=== PATIENT | female | born 1990 | race Caucasian/White ===

== ENCOUNTER → 2021-10-23 09:04 | Day surgery (SDC) | payer BC, SELFPAY ==
[2021-10-23 09:33] VITALS: BMI 39.1
--- NOTE | 2021-10-23 11:31 | HMH.TILT ---
Findings:: PROCEDURE: Tilt table test REQUESTING PROVIDER: NANCY Patino INDICATION: Palpitations, dizziness, possible POTS BETA BLOCKERS: None PRETEST VITAL SIGNS (supine): BP 142/72, HR 76 and regular, O2sats 98% PROCEDURE SUMMARY: Patient was prepped per protocol, IV started, connected to heart, blood pressure and oxygen saturation monitors and safety straps applied. She was then tilted at 70 degrees for a total of 35 minutes. She denied any symptoms during the test and had no dizziness, lightheadedness, near syncope or syncope. Her vital signs remained stable and normal throughout the test with minimal fluctuations. In the upright position her lowest BP was 130/77 occurring after 30 minutes upright and highest was 140/82 occurring after 25 minutes upright. While upright her lowest heart rate was 82 bpm and highest was 89 bpm. She was in a normal sinus rhythm throughout. Oxygen saturation was 97 to 100% throughout. CONCLUSIONS: Normal tilt table test.
== END ==
PROVIDERS: PCP Pain Medicine Pain Medicine; Visit Provider Pain Medicine Pain Medicine
DX: R55 Syncope and collapse (principal); R00.0 Tachycardia, unspecified
CPT/HCPCS: 93660

== ENCOUNTER → 2021-10-31 08:35 | Outpatient (CLI) | payer BC, SELFPAY | LOC: RT 08:36 | PROVIDERS: PCP Pain Medicine Pain Medicine; Visit Provider Pain Medicine Pain Medicine | DX: R55 Syncope and collapse (principal); R00.0 Tachycardia, unspecified | CPT/HCPCS: 93225; 93226 ==

== ENCOUNTER 2022-02-16 11:58 | Emergency (ER) | payer BC, SELFPAY ==
--- NOTE | 2022-02-16 14:07 | EXP.UTC ---
Discharge Plan Disposition Patient Disposition: Home, Self-Care Condition: Good Prescriptions Prescriptions: New azithromycin [Zithromax] 250 mg tablet 250 mg PO UD DOSE PK Qty: 6 0RF Rx Instructions: Take two (2) tablets today, then one (1) tablet days #2 thru #5 methylprednisolone 4 mg Tablets,Dose Pack 4 mg PO DIRECTED Qty: 21 0RF Referrals Follow up/Referrals: Amy Sullivan APRN [Primary Care Provider] - See instructions Activity Restrictions/Add. Instructions Additional Instructions/Restrictions: Drink plenty of fluids. Take tylenol or ibuprofen for pain or fever. Take the medications as directed. Follow up with your regular doctor. GO TO THE ER FOR ANY WORSENING SYMPTOMS Don't start the oral steroids until tomorrow, since you had the shot here today. Clinical Impressions Clinical Impression: Pharyngitis Instructions Patient Instructions: DI for Pharyngitis/Tonsillopharyngitis -- Adult Discharge ED Provider: Jey Rodriguez [facility] [place] General Stated complaint: sore throat, headache,congestion Time Seen by Provider: 02/16/22 14:07 History of Present Illness Provider Complaint: She states that for the past 2 days she has had sore throat, chills, body aches and low grade fever. Related Data Previous Rx's Medication Instructions Recorded azithromycin 250 mg tablet 250 mg PO UD DOSE PK #6 tabs 02/16/22 (Zithromax) methylprednisolone 4 mg tablets in 4 mg PO DIRECTED #21 tabs 02/16/22 a dose pack Allergies Allergy/AdvReac Type Severity Reaction Status Date / Time No Known Allergies Allergy Verified 02/16/22 14:32 [facility] Disclaimer: The information contained in this section may have been updated after the patient was seen, as this information can be updated by other users. Social History Smoking Status: Never smoker alcohol intake: never current occupational status: employed Travel in the last 8 weeks: None ROS Obtained: Yes All systems reviewed & no additional complaints except as documented Constitutional Constitutional: Reports chills and Reports fever(s) Eyes Eyes: Denies eye discharge ENT Ears, Nose, Mouth, and Throat: Reports as per HPI Cardiovascular Cardiovascular: Denies chest pain Respiratory Respiratory: Denies chest congestion and Reports cough Gastrointestinal Gastrointestingal: Reports nausea; Denies abdominal pain, constipation, cramping, diarrhea or vomiting Musculoskeletal Musculoskeletal: Denies arthralgias Integumentary/Breasts Skin/Breast: Denies rash Neurologic Neurologic: Denies paresthesias Physical Exam General General appearance: alert and in no apparent distress Head Head exam: atraumatic, normocephalic and normal inspection Eye Eye exam: Present normal appearance, PERRL and EOMI ENT ENT exam: Present mucous membranes moist and normal external ear exam Expanded ENT Exam TM/Canal exam: Bilateral TM: erythema and bulging Nose exam: Absent sinus tenderness Mouth exam: Present normal external inspection; Absent drooling Teeth exam: Present normal inspection Throat exam: Present tonsillar erythema, tonsillomegaly and tonsillar exudate Neck Neck exam: Present normal inspection, full ROM and trachea midline; Absent tenderness, meningismus or lymphadenopathy Chest Chest inspection: Present normal inspection and symmetric chest wall rise; Absent tenderness Respiratory Respiratory exam: Present normal lung sounds bilaterally; Absent respiratory distress, wheezes or stridor Cardiovascular Cardiovascular exam: Present regular rate and normal rhythm; Absent systolic murmur or diastolic murmur Abdominal Exam Abdominal exam: Present soft and normal bowel sounds; Absent distention, tenderness, guarding, rebound or rigidity Extremities Exam Extremities exam: Present normal inspection and normal capillary refill; Absent calf tenderness Back Exam Back exam: Prese
[2022-02-16 14:28] LABS: UTC Influenza A Antigen Negative (Negative); UTC Strep Screen (Rapid) Negative (Negative)
[2022-02-16 14:29] LABS: UTC Influenza B Antigen Negative (Negative)
[2022-02-16 14:30] VITALS: BP 120/70; PULSE 96; RESP 16; TEMP 36.6; O2SAT 98; BMI 39.1
[2022-02-16 15:42] VITALS: BP 120/70; PULSE 96; RESP 16; TEMP 36.6
[2022-02-16 15:53] LABS: Adenovirus,PCR Not Detected (NotDetected); Bordetella Pertussis Not Detected (NotDetected); Chlamydophila Pneumoniae, PCR Not Detected (NotDetected); Coronavirus 229E Not Detected (NotDetected); Coronavirus NL63 Not Detected (NotDetected); Coronavirus OC43 Not Detected (NotDetected); Coronovirus HKU1,PCR Not Detected (NotDetected); Human Metapneumovirus Not Detected (NotDetected); Influenza A, PCR Not Detected (NotDetected); Influenza AH1, 2009 Not Detected (NotDetected); Influenza AH1, PCR Not Detected (NotDetected); Influenza AH3,PCR Not Detected (NotDetected); Influenza B, PCR Not Detected (NotDetected); Mycoplasma Pneumoniae, PCR Not Detected (NotDetected); Parainfluenza 1, PCR Not Detected (NotDetected); Parainfluenza 2, PCR Not Detected (NotDetected); Parainfluenza 3, PCR Not Detected (NotDetected); Parainfluenza 4, PCR Not Detected (NotDetected); Respiratory Syncytial Virus Not Detected (NotDetected); Rhinovirus/Enterovirus Not Detected (NotDetected)
[2022-02-16 23:59] LABS: Coronavirus 19, PCR Detected (NotDetected)
== END 2022-02-16 15:43 | disposition home or self-care (01) ==
PROVIDERS: Emergency Provider Nurse Practitioner Family; PCP Pain Medicine Pain Medicine
DX: U07.1 COVID-19 (principal); J02.9 Acute pharyngitis, unspecified; R50.9 Fever, unspecified; M79.10 Myalgia, unspecified site; R09.81 Nasal congestion; R51.9 Headache, unspecified; Z79.52 Long term (current) use of systemic steroids
CPT/HCPCS: 87581; 87632; 87798; 87804; 87880; 96372; 99213; C9803; G0463; J0696; U0003; U0005

== ENCOUNTER 2022-05-13 05:10 | Emergency (ER) | payer BC, SELFPAY ==
[2022-05-13] VITALS (7 sets, daily range): BP systolic 108–131; BP diastolic 70–77; PULSE 97–103; RESP 17–18; TEMP 36.6–36.7; O2SAT 98–100; BMI 30.4; BMI 39.1
--- NOTE | 2022-05-13 05:13 | ECG_ITS ---
APPROVED REPORT Exam: Resting ECG HR:176 bpm ECG Measurements Heart Rate 176 AXES QRSd 87 QRS 83 QT 210 T -37 QTc 304 Conclusion ATRIAL FIBRILLATION WITH RAPID VENTRICULAR RESPONSE NONSPECIFIC ST & T-WAVE ABNORMALITY CRITICAL TEST RESULT UNCONFIRMED REPORT Electronically signed by : Zeeshan Corral MD 05/13/2022 19:22:54
--- NOTE | 2022-05-13 05:19 | XR_ITS ---
PROCEDURE INFORMATION: Exam: XR Chest Exam date and time: 05/13/2022 6:03 AM Age: 32 years old Clinical indication: Shortness of breath; Additional info: Rapid hr, SOA TECHNIQUE: Imaging protocol: Radiologic exam of the chest. Views: 1 view. COMPARISON: No relevant prior studies available. FINDINGS: Lungs: Unremarkable. No consolidation. Pleural spaces: Unremarkable. No pleural effusion. No pneumothorax. Heart/Mediastinum: Unremarkable. No cardiomegaly. Bones/joints: Unremarkable. IMPRESSION: No acute findings.
--- NOTE | 2022-05-13 05:26 | ECG_ITS ---
APPROVED REPORT Exam: Resting ECG HR:102 bpm ECG Measurements Heart Rate 102 AXES MI 170 P 46 QRSd 90 QRS 77 QT 320 T 49 QTc 379 Conclusion SINUS TACHYCARDIA NONSPECIFIC T-WAVE ABNORMALITY ABNORMAL RHYTHM ECG UNCONFIRMED REPORT Electronically signed by : Zeeshan Corral MD 05/13/2022 19:22:45
[2022-05-13 05:34] LABS: Basophils # 0.1 K/mm3 (0-0.2); Basophils % 0.6 % (0.1-2.0); Eosinophils # 0.3 K/mm3 (0.0-0.4); Eosinophils % 2.9 % (0.1-12.0); Hematocrit 44.3 % (37.0-47.0); Hemoglobin 14.4 g/dL (12.2-16.2); Lymphocytes # 2.5 K/mm3 (0.7-4.5); Lymphocytes % 25.4 % (10-50); Mean Corpuscular HGB Conc 32.6 g/dL (31.8-35.4); Mean Corpuscular Hemoglobin 29.1 pg (27.0-31.2); Mean Corpuscular Volume 89.5 fl (81-99); Monocytes # 0.4 K/mm3 (0.1-1.0); Monocytes % 3.6 % (1.7-9.3); Neutrophils # 6.6 K/mm3 (1.8-7.8); Neutrophils % 67.5 % (37.0-80.0); Platelet Count 354 K/mm3 (142-424); Red Blood Count 4.95 M/mm3 (4.20-5.40); Red Cell Distribution Width 13.1 % (11.5-17.5); White Blood Count 9.8 K/mm3 (4.8-10.8)
[2022-05-13 05:39] LABS: HCG Qualitative, Serum Negative (Negative)
[2022-05-13 05:40] LABS: Alanine Aminotransferase 23 U/L (12-78); Albumin Level 4.6 g/dl (3.5-5.0); Albumin/Globulin Ratio 1.5 (1.1-1.8); Alkaline Phosphatase 118 U/L (38-126); Anion Gap 5.6 mEq/L (5-15); Aspartate Amino Transferase 29 U/L (14-36); Bilirubin,Total 0.5 mg/dl (0.2-1.3); Blood Urea Nitrogen 15 mg/dl (7-17); Calcium 8.9 mg/dl (8.4-10.2); Carbon Dioxide 28 mmol/L (22.0-30.0); Chloride 107 mmol/L (98-107); Creatinine Clearance Estimated 147 mL/min (50-200); Estimated Glomerular Filt Rate 84 ml/min (>60); GFR (African American) 102 ML/MIN (>60); Glucose 121 mg/dl (74-100); Potassium 3.6 mmoL/L (3.5-5.1); Sodium 137 mmol/L (136-145); Total Protein,Serum 7.6 g/dl (6.3-8.2)
[2022-05-13 05:46] LABS: C-Reactive Protein 1.6 mg/L (0-4)
[2022-05-13 06:00] LABS: Procalcitonin 0.052 ng/mL (0.0-2.0); T4 (Thyroxine) 8.2 ug/dl (5.53-11.0); Troponin I < 0.01 ng/ml (0.00-0.034)
[2022-05-13 06:04] LABS: Erythrocyte Sedimentation Rate 14 mm/hr (0-20)
[2022-05-13 06:13] LABS: Thyroid Stimulating Hormone 4.01 uIU/mL (0.465-4.68)
[2022-05-13 06:26] LABS: Hemoglobin A1C 5.2 % (4.0-6.0)
--- NOTE | 2022-05-13 06:37 | CA_ITS ---
APPROVED REPORT EXAM: Comprehensive 2D, Doppler, and color-flow Echocardiogram Entry Level Assistant Manager: Yasemin Ornelas RVT Ht: 5 ft 7 in Wt: 250lbs BSA: 2.22 BP: 110/71 mmHg Indications: SVT/A-FIB,PALPS,OBESITY 2D Dimensions LVOT 1.93 cm (M/F) 1.5-2.5 LA Volume 25.50 mL LA Volume Index 11.43 mL/m2 (M/F) 16-34 M-Mode Dimensions RVDd 2.44 cm (0.9-2.6) LA Diam 4.08 cm (1.9-4.0) LVDd 4.91 cm (3.5-5.7) Ao Diam 2.93 cm (2.0-3.7) LVDs 3.11 cm (3.5-5.7) IVSd 0.38 cm (0.6-1.1) PWd 0.49 cm (0.6-1.1) EF (Teich) 66.30% FS 36.70% EDV (Teich) 113.40 mL ESV (Teich) 38.20 mL LV Diastology E Decel Time 263.00 (160-240 msec) E/A Ratio 1.5 MED E' 9.50 (< 7 cm/sec) E'/MED E' Ratio 9.59 (>14) LAT E' 16.30 (<10 cm/sec) E/LAT E' Ratio 5.59 (>14) Aortic Valve AO Peak GR. 4.60 mmHg Mitral Valve MV E Max Jim. 91.00 (40-130 cm/s) MV A Velocity 61.00 (40-130 cm/s) E/A Ratio 1.49 MV Decel. Time 263.00 (160-240 ms) MV PHT 77.00 ms Pulmonary Valve PV Peak Velocity 80.00 (50-150 cm/s) Left Ventricle Left atrium is normal size, left ventricle is normal size, overall preserved left ventricular systolic function estimated ejection fraction 55% with no regional wall motion abnormality, diastolic parameters are within normal range. Right Ventricle Right atrium and right ventricular normal size and contractility. Aortic Valve Aortic valve is grossly normal, there is no aortic stenosis or aortic insufficiency. Mitral Valve Mitral valve is grossly normal, there is trace mitral regurgitation. Tricuspid Valve Tricuspid valve is grossly normal, there is trace tricuspid regurgitation, tricuspid regurgitation jet velocity is inadequate for calculation of the right ventricular systolic pressure. Pulmonic Valve Pulmonic valve is poorly visualized. Great Vessels Aortic root is normal size. Inferior vena cava is normal size with normal inspiratory collapse. Pericardium No significant pericardial effusion noted. Conclusion 1. Normal left ventricular size preserved left ventricular systolic function, estimated ejection fraction 55% with no regional wall motion abnormality, diastolic parameters are within normal range. 2. Trace mitral and tricuspid regurgitation. 3. No significant pericardial effusion noted. 4. Inferior vena cava is normal size with normal inspiratory collapse. Electronically signed by : Sen Cavazos MD 05/13/2022 14:58:12
--- NOTE | 2022-05-13 06:56 | PC.NURSE ---
called CV lab, to let them know of echo order. States they will be here shortly.
--- NOTE | 2022-05-13 07:00 | PC.NURSE ---
report received from Delio RN
--- NOTE | 2022-05-13 07:23 | HMH.EDARPALP ---
Discharge Plan Disposition Patient Disposition: Home, Self-Care Chief Complaint: Arrhythmia/Palpitations Prescriptions Prescriptions: No Action No Known Home Medications Referrals Follow up/Referrals: Amy Sullivan APRN [Primary Care Provider] - See instructions Matias Gil MD [Staff Physician] - See instructions Clinical Impressions Clinical Impression: Supraventricular tachycardia Instructions Patient Instructions: DI for Palpitations Discharge ED Provider: Omar (ED)Arnold Arrhythmia/Palpitations HPI General Chief Complaint: Arrhythmia/Palpitations Stated Complaint: Rapid Heart beart Time Seen by Provider: 05/13/22 06:00 Mode of Arrival: Ambulatory Source of Information: Patient Limitations: No Limitations History of Present Illness HPI narrative: pt with acute episode of inc hr with no def chest pain or syncope complaint: rapid heart beat Onset (ago): hour(s) Duration: intermittent Severity: moderate Associated symptoms: denies other symptoms Related Data Home Medications Medication Instructions Recorded Confirmed No Known Home Medications 05/13/22 05/13/22 Allergies Allergy/AdvReac Type Severity Reaction Status Date / Time No Known Allergies Allergy Verified 04/10/22 10:04 [facility] Disclaimer: The information contained in this section may have been updated after the patient was seen, as this information can be updated by other users. Medical History (Updated 05/13/22 @ 07:35 by Arnold Nelson (ED)MD) Generalized anxiety disorder Social History (System 03/28/22 @ 11:24 by Herb Villalobos) Smoking Status: Never smoker second hand exposure: No alcohol intake: never counseling given: No substance use type: denies use current occupational status: employed, unemployed and other details: she is a stay at home mother Travel in the last 8 weeks: None adopted: No caregiver/support person: Yes (for her kids) foster care: No household members: spouse housing: house lives independently: Yes marital status: number of children: 1 number of grandchildren: 0 education level: high school service: No detention: No Hx Recent Travel: No sexually active: Yes caffeine: Yes physical activity: none dakota/baptism: Jainism special dakota needs: No working smoke detector in home: Yes fire extinguisher in home: Yes carbon monox detector in home: No firearms in home: Yes do you feel safe at home: Yes victim of physical abuse: No victim of emotional abuse: No victim of sexual abuse: No would you like helpful sources: No ROS Obtained: Yes All systems reviewed & no additional complaints except as documented Physical Exam General General appearance: alert Head Head exam: normocephalic Eye Eye exam: Present PERRL and EOMI ENT ENT exam: Present mucous membranes moist Neck Neck exam: Present trachea midline Respiratory Respiratory exam: Absent respiratory distress Cardiovascular Cardiovascular exam: Present tachycardia Abdominal Exam Abdominal exam: Present soft Extremities Exam Extremities exam: Present full ROM Neurological Exam Neurological exam: Present alert, oriented X3 and CN II-XII intact; Absent motor sensory deficit Psychiatric Psychiatric exam: Present normal affect Skin Skin exam: Absent rash Medical Decision Making Medical Records Medical records reviewed: Yes I reviewed the patient's medical records. Gary Inquiry Pt receiving controlled substance: No Vital Signs: 05/13/22 05:34 05/13/22 06:00 05/13/22 06:30 Temperature 98 F Temperature Source Oral Pulse Rate 101 H 99 H Pulse Rate [Apical] 103 H Respiratory Rate 18 18 18 Blood Pressure 110/70 108/77 L Blood Pressure [Right Arm] 114/77 Blood Pressure Mean [Right Arm] 89 Blood Pressure Source [Right Arm] Automatic Cuff Blood Pressure Position [Right Arm] Sitting
--- NOTE | 2022-05-13 07:38 | PC.NURSE ---
vascular at bedside for echo
--- NOTE | 2022-05-13 07:40 | PC.NURSE ---
pt ambulatory to restroom at this time
== END 2022-05-13 08:14 | disposition home or self-care (01) ==
PROVIDERS: Emergency Provider Emergency Medicine; PCP Pain Medicine Pain Medicine
DX: R00.0 Tachycardia, unspecified (principal); F41.1 Generalized anxiety disorder
CPT/HCPCS: 71045; 80053; 83036; 84145; 84436; 84443; 84484; 84703; 85025; 85651; 86140; 93005; 93306; 96360; 99285

== ENCOUNTER → 2022-05-14 09:26 | Outpatient (CLI) | payer BC, SELFPAY | LOC: RT 09:27 | PROVIDERS: PCP Pain Medicine Pain Medicine; Visit Provider Nurse Practitioner | DX: R55 Syncope and collapse (principal); R00.2 Palpitations; I47.1 Supraventricular tachycardia; R73.03 Prediabetes | CPT/HCPCS: 93270 ==

== ENCOUNTER → 2022-05-20 09:44 | Outpatient (CLI) | payer BC, SELFPAY ==
[2022-05-20 10:19] LABS: Basophils # 0.1 K/mm3 (0-0.2); Basophils % 1.3 % (0.1-2.0); Eosinophils # 0.2 K/mm3 (0.0-0.4); Eosinophils % 2.8 % (0.1-12.0); Hematocrit 41.1 % (37.0-47.0); Hemoglobin 13.3 g/dL (12.2-16.2); Lymphocytes # 1.9 K/mm3 (0.7-4.5); Mean Corpuscular HGB Conc 32.4 g/dL (31.8-35.4); Mean Corpuscular Hemoglobin 28.7 pg (27.0-31.2); Mean Corpuscular Volume 88.6 fl (81-99); Monocytes # 0.2 K/mm3 (0.1-1.0); Neutrophils # 3.1 K/mm3 (1.8-7.8); Neutrophils % 56.9 % (37.0-80.0); Platelet Count 353 K/mm3 (142-424); Red Blood Count 4.64 M/mm3 (4.20-5.40); White Blood Count 5.5 K/mm3 (4.8-10.8)
[2022-05-20 10:36] LABS: Chloride 104 mmol/L (98-107)
[2022-05-20 10:37] LABS: Potassium 4.3 mmoL/L (3.5-5.1); Sodium 138 mmol/L (136-145)
[2022-05-20 10:39] LABS: Alanine Aminotransferase 20 U/L (12-78); Aspartate Amino Transferase 23 U/L (14-36); Blood Urea Nitrogen 13 mg/dl (7-17); Estimated Glomerular Filt Rate 98 ml/min (>60); GFR (African American) 119 ML/MIN (>60)
[2022-05-20 10:40] LABS: Albumin Level 4.3 g/dl (3.5-5.0); Albumin/Globulin Ratio 1.7 (1.1-1.8); Alkaline Phosphatase 101 U/L (38-126); Anion Gap 10.3 mEq/L (5-15); Bilirubin,Total 0.4 mg/dl (0.2-1.3); Calcium 9.1 mg/dl (8.4-10.2); Carbon Dioxide 28 mmol/L (22.0-30.0); Globulin 2.6 g/dL (1.3-3.2); Glucose 100 mg/dl (74-100); Total Protein,Serum 6.9 g/dl (6.3-8.2)
[2022-05-20 10:45] LABS: C-Reactive Protein 1.8 mg/L (0-4)
[2022-05-20 10:56] LABS: T4 (Thyroxine) 7.9 ug/dl (5.53-11.0)
[2022-05-20 11:10] LABS: Thyroid Stimulating Hormone 1.87 uIU/mL (0.465-4.68)
[2022-05-20 11:57] LABS: Erythrocyte Sedimentation Rate 23 mm/hr (0-20)
[2022-05-20 12:08] LABS: Hemoglobin A1C 5.1 % (4.0-6.0)
[2022-05-21 09:01] LABS: RA Latex Turbid. 10.4 IU/mL (<14.0); Thyroid Peroxidase Antibodies <9 IU/mL (0-34); Triiodothyronine (T3) Free 3.4 pg/mL (2.0-4.4)
[2022-05-21 11:22] LABS: Insulin Level Total 15.1 uIU/mL (2.6-24.9)
[2022-05-21 12:28] LABS: Anti-Cyclic Citrullinated Pept 2 units (0-19)
[2022-05-21 15:29] LABS: Anti-Centromere B Antibodies <0.2 AI (0.0-0.9); Anti-DNA (DS) Ab Qn <1 IU/mL (0-9); Anti-Jo-1 <0.2 AI (0.0-0.9); Anti-Smith Antibody <0.2 AI (0.0-0.9); Antichromatin Antibodies <0.2 AI (0.0-0.9); Antiscleroderma-70 Antibodies <0.2 AI (0.0-0.9); C-Peptide 2.8 ng/mL (1.1-4.4); RNP Antibodies 0.2 AI (0.0-0.9); Sjogren's Anti-SS-A <0.2 AI (0.0-0.9); Sjogren's Anti-SS-B <0.2 AI (0.0-0.9)
[2022-05-22 07:52] LABS: Thyroid Stimulating Immunoglob <0.10 IU/L (0.00-0.55)
[2022-05-23 06:04] LABS: Lupus Reflex Interpretation Comment: (.); PTT-LA 30.9 sec (0.0-43.5); dRVVT 40.2 sec (0.0-47.0)
[2022-05-25 02:18] LABS: Anti Mullerian Hormone (AMH) 8.19
== END ==
PROVIDERS: PCP Physician Assistant; Visit Provider Physician Assistant
DX: R00.0 Tachycardia, unspecified (principal); R76.8 Other specified abnormal immunological findings in serum; R79.89 Other specified abnormal findings of blood chemistry
CPT/HCPCS: 36415; 80053; 82397; 83036; 83525; 84436; 84443; 84445; 84481; 84681; 85025; 85613; 85651; 86140; 86200; 86225; 86235; 86376; 86431

== ENCOUNTER → 2022-06-26 16:31 | Outpatient (CLI) | payer BC, SELFPAY ==
--- NOTE | 2022-06-26 16:34 | US_ITS ---
FINAL REPORT CLINICAL HISTORY: thyroid lab abnl FINDINGS: Limited sonographic images of the thyroid were obtained. The right thyroid measures 5.12 x 1.34 x 1.12 cm. No mass or nodule is identified. The left thyroid measures 4.2 x 1.3 x 1.3 cm. No mass or nodule is identified. The isthmus measures 0.35 cm. IMPRESSION: Thyroid appears within normal limits. Reviewed, Interpreted and Dictated by Byron Hare III, MD Transcribed by Norma Parsons Authenticated and [facility]
== END ==
PROVIDERS: PCP Physician Assistant; Visit Provider Physician Assistant
DX: R00.0 Tachycardia, unspecified (principal); R76.8 Other specified abnormal immunological findings in serum; R79.89 Other specified abnormal findings of blood chemistry
CPT/HCPCS: 76536

== ENCOUNTER 2023-01-20 20:00 | Emergency (ER) | payer BC, SELFPAY ==
[2023-01-20 20:00] VITALS: BP 124/78; PULSE 105; RESP 20; TEMP 37.4; O2SAT 97; BMI 47.0
--- NOTE | 2023-01-20 20:20 | ECG_ITS ---
APPROVED REPORT Exam: Resting ECG HR:92 bpm ECG Measurements Heart Rate 92 AXES VA 168 P 23 QRSd 94 QRS 49 QT 342 T 9 QTc 392 Conclusion SINUS RHYTHM NORMAL ECG UNCONFIRMED REPORT Electronically signed by : Zeeshan Corral MD 01/22/2023 21:15:34
[2023-01-20 20:42] LABS: Microscopic, Urine URINE MICROSCOPIC (MICROSCOPIC)
[2023-01-20 20:51] LABS: Basophils % 0.2 % (0.1-2.0); Eosinophils % 0.3 % (0.1-12.0); Hematocrit 38.5 % (37.0-47.0); Hemoglobin 13.2 g/dL (12.2-16.2); Lymphocytes # 0.9 K/mm3 (0.7-4.5); Mean Corpuscular HGB Conc 34.4 g/dL (31.8-35.4); Mean Corpuscular Hemoglobin 29.8 pg (27.0-31.2); Mean Corpuscular Volume 86.7 fl (81-99); Mean Platelet Volume 7.8 fl (7.4-10.4); Monocytes # 0.2 K/mm3 (0.1-1.0); Neutrophils # 6.6 K/mm3 (1.8-7.8); Neutrophils % 84.7 % (37.0-80.0); Platelet Count 295 K/mm3 (142-424); Red Blood Count 4.44 M/mm3 (4.20-5.40); Red Cell Distribution Width 13.5 % (11.5-17.5); White Blood Count 7.8 K/mm3 (4.8-10.8)
[2023-01-20 20:55] LABS: Appearance,Urine CLEAR (Clear); Bilirubin,Urine Negative (Negative); Blood, Urine 3+ (Negative); Color,Urine YELLOW (Yellow); Glucose,Urine (UA) Negative (Negative); Ketones,Urine Negative (Negative); Leukocyte Esterase,Urine TRACE (Negative); Nitrate,Urine Negative (Negative); Protein,Urine Negative (Negative); Specific Gravity, Urine <= 1.005 (1.005-1.030); Urobilinogen,Urine 0.2 EU/dl (0.2)
[2023-01-20 20:56] LABS: Urine Pregnancy, HCG Qual. Negative (Negative)
[2023-01-20 21:00] VITALS: BP 123/70; PULSE 89; RESP 15; O2SAT 96
[2023-01-20 21:04] LABS: Chloride 103 mmol/L (98-107); Potassium 3.4 mmoL/L (3.5-5.1); Sodium 135 mmol/L (136-145)
[2023-01-20 21:07] LABS: Alanine Aminotransferase 29 U/L (12-78); Albumin/Globulin Ratio 1.3 (1.1-1.8); Alkaline Phosphatase 89 U/L (38-126); Anion Gap 11.4 mEq/L (5-15); Aspartate Amino Transferase 33 U/L (14-36); Bilirubin,Total 0.5 mg/dl (0.2-1.3); Blood Urea Nitrogen 11 mg/dl (7-17); Calcium 8.1 mg/dl (8.4-10.2); Carbon Dioxide 24 mmol/L (22.0-30.0); Creatinine Clearance Estimated 100 mL/min (50-200); Estimated Glomerular Filt Rate 84 ml/min (>60); GFR (African American) 102 ML/MIN (>60); Glucose 111 mg/dl (74-100)
[2023-01-20 21:08] LABS: WBC,Urine Occasional #/hpf (0-3)
--- NOTE | 2023-01-20 21:22 | HMH.EDGENADL ---
Discharge Plan Disposition Patient Disposition: Home, Self-Care Prescriptions Prescriptions: New ondansetron 4 mg tablet,disintegrating 4 mg PO Q6H PRN (Reason: nausea and vomiting) Qty: 10 1RF No Action omeprazole 10 mg capsule,delayed release(DR/EC) 10 mg PO DAILY levocetirizine [Xyzal] 5 mg tablet 5 mg PO DAILY albuterol sulfate 90 mcg/actuation HFA aerosol inhaler 1 puff inhalation Q4-6H PRN Patient Comments: INAHLE 1 PUFF BY MOUTH NEEDED EVERY 4 TO 6 HOURS FOR SHORTNESS OF BREATH Ozempic 1 mg/dose (4 mg/3 mL) pen injector 1 mg SQ WEEKLY Patient Comments: INJECT 1MG SUBUCANEOUSLY ONCE WEEKLY ON THE SAME DAY EACH WEEK IN THE ABDOMEN, THIGH, OR UPPER ARM ROTATING INJECTION SITES bisoprolol fumarate 5 mg tablet 2.5 mg PO BID Qty: 30 5RF Referrals Follow up/Referrals: Amy Sullivan APRN [Primary Care Provider] - See instructions Activity Restrictions/Add. Instructions Additional Instructions/Restrictions: Call your family doctor to establish care for this visit to the emergency department and schedule follow-up within 48 hours to ensure improvement. If you have any worsening of your condition or any other concerning signs or symptoms, return to the emergency department or your primary care doctor for further evaluation. Take Tylenol 1000 mg every 6 hours (4 times daily) and ibuprofen 400 mg every 6 hours (4 times daily) as needed with food and water to prevent GI upset and kidney damage. Zofran every 6 hours as needed for nausea and vomiting. Clinical Impressions Clinical Impression: Vomiting and diarrhea, Acute dehydration Instructions Patient Instructions: DI for Diarrhea and Traveler's Diarrhea -- Adult, DI for Diarrhea and Traveler's Diarrhea -- Child, DI for Nausea -- Adult, DI for Nausea -- Child Discharge ED Provider: Kenney Davey General Adult HPI General Chief complaint: Nausea/Vomiting/Diarrhea Stated complaint: vomiting, diarrhea, fluttering in chest Time Seen by Provider: 01/20/23 20:04 Mode of Arrival: Ambulatory Source of Information: Patient Limitations: No Limitations Description of Symptoms (Recalled from ER Triage Doc. by RN): Patient reports that she has had N/V/D since 4am this morning. Whole family has had similar symptoms today. Patient reports heart palpitations since 2:30pm that has been persistant. States that she has a history of heart palpitations which she takes medication for and they had said she had Afib and/or SVT she's unsure. Patient denies pain at this time. History of Present Illness HPI narrative: Otherwise healthy 32-year-old female presenting with vomiting and diarrhea. This been going on since about 4 AM today, 01/20. States that she has numerous sick contacts in the house with similar symptoms. She has been unable to tolerate Pedialyte, unlike the others in her house, so she came to the emergency department. Started having palpitations after feeling dehydrated. Because she has a history of SVT, wanted to make sure that was not what was going on. Denies chest pain, shortness of breath, diaphoresis, or any other concerns. Related Data Home Medications Medication Instructions Recorded Confirmed albuterol sulfate 90 mcg/actuation 1 puff inhalation Q4-6H PRN 05/14/22 10/31/22 aerosol inhaler semaglutide 1 mg/dose (4 mg/3 mL) 1 mg SQ WEEKLY 05/14/22 10/31/22 subcutaneous pen injector (Ozempic) levocetirizine 5 mg tablet (Xyzal) 5 mg PO DAILY 05/20/22 10/31/22 omeprazole 10 mg capsule,delayed 10 mg PO DAILY 05/20/22 10/31/22 release Previous Rx's Medication Instructions Recorded bisoprolol fumarate 5 mg tablet 2.5 mg PO BID #30 tabs 12/30/22 ondansetron 4 mg disintegrating 4 mg PO Q6H PRN nausea and 01/20/23 tablet vomiting #10 tabs Allergies Allergy/AdvReac Type Severity Reaction Status Date / Time latex Allergy Intermediate rash Verified 01/20/23 20:37 [facility] Disclaimer: The information c
[2023-01-20 21:25] LABS: T4 (Thyroxine) 6.5 ug/dl (5.53-11.0)
[2023-01-20 21:30] VITALS: BP 119/67; PULSE 87; RESP 18; O2SAT 98
[2023-01-20 21:38] LABS: Thyroid Stimulating Hormone 0.74 uIU/mL (0.465-4.68)
--- NOTE | 2023-01-20 21:40 | PC.NURSE ---
Patient reports nausea has improved, headache is gone. States she feels much better at this time. Notified provider.
[2023-01-20 22:00] VITALS: BP 114/60; PULSE 84; RESP 20; O2SAT 97
[2023-01-20 22:37] VITALS: BP 114/60; PULSE 84; RESP 20; TEMP 36.7; O2SAT 97
== END 2023-01-20 22:39 | disposition home or self-care (01) ==
PROVIDERS: Emergency Provider Emergency Medicine; PCP Pain Medicine Pain Medicine
DX: E86.0 Dehydration (principal); R11.2 Nausea with vomiting, unspecified; R19.7 Diarrhea, unspecified; R00.2 Palpitations; F41.1 Generalized anxiety disorder; E87.6 Hypokalemia
CPT/HCPCS: 80053; 81001; 81025; 84436; 84443; 85025; 93005; 96361; 96374; 99284; J2405